=== PATIENT | male | born 1985 | race Caucasian/White ===

== ENCOUNTER 2022-07-26 16:22 | Emergency (ER) | payer OTHER, SELFPAY | END 2022-07-26 17:00 | disposition home or self-care (01) | LOC: EXPTROY 20:14 | PROVIDERS: Emergency Provider Nurse Practitioner Family | DX: S61.251A Open bite of left index finger without damage to nail, initial encounter (principal); L03.012 Cellulitis of left finger; W54.0XXA Bitten by dog, initial encounter | CPT/HCPCS: 99213; G0463 ==